=== PATIENT | male | born 1995 | race Caucasian/White ===

== ENCOUNTER 2021-02-13 09:20 | Emergency (ER) | payer OTHER ==
[~2021-02-13] VITALS: Ht 172.7 cm; Wt 113.4 kg
[2021-02-13] MEDS ORDERED: HYDROCODONE/APAP 10-325 MG TABLET PO ONE (10:15)
[2021-02-13] MEDS ORDERED: HYDROCODONE/APAP 10-325 MG TABLET ONE (10:40)
--- NOTE | 2021-02-13 12:24 | NUR ---
PT WAS EVALUATED BY DR PATEL. PT WAS D/C'd TO HOME. D/C INSTRUCTIONS GIVEN TO THE PT BY DR PATEL.
[2021-02-13 12:26] VITALS: BP 144/88
== END 2021-02-13 12:27 | disposition home or self-care (01) ==
LOC: ER 09:22
DX: S93.402A Sprain of unspecified ligament of left ankle, initial encounter (principal); W18.40XA Slipping, tripping and stumbling without falling, unspecified, initial encounter; Y93.67 Activity, basketball; Y92.89 Other specified places as the place of occurrence of the external cause
CPT/HCPCS: 73610; A4663